=== PATIENT | male | born 1955 | race Caucasian/White ===

== ENCOUNTER → 2016-07-23 | Outpatient (CLI) | payer BC ==
[~2016-07-23] MED LIST: ASPIRIN PO; ASPIRIN81 M1 PO; CADUET 10 MG-41 EACH PO; CADUET PO; DOCUSATE SODIU100 MG PO; FISH OIL 1,001000 MG PO; FLEXERIL10 MG PO; HYDRALAZINE HCL50 MG PO; HYDROCODON-ACE1 EAC5 PO; JANUVIA50 MG PO; LASIX PO; LOPRESSOR PO; METFORMIN PO; METOPROLOL TAR25 MG PO; NIASPAN PO; NITROGLYCERIN0.3 MG SL; PLAVIX PO; PRINIVIL40 MG PO; TOPROL XL PO; TRILIPIX135 MG PO; ULTRAM PO
[2016-07-23 10:54] LABS: ALBUMIN SERUM 3.6 g/dL (3.5-5.0); BILIRUBIN,TOTAL 0.5 mg/dL (0.2-2.0); BUN/CREATININE RATIO 16.84; CALCIUM SERUM 9.2 mg/dL (8.4-10.2); CREATININE SERUM 1.9 mg/dL (0.6-1.4); PHOSPHOROUS 3.7 mg/dL (2.5-4.6); POTASSIUM 4.4 mmol/L (3.5-5.1); URIC ACID 6.1 mg/dL (2.6-7.2)
[2016-07-29 20:54] LABS: CALCIUM (PTHINTACT) 9.4 mg/dL (8.6-10.3)
== END | disposition home or self-care (01) ==
LOC: CLAB 08:57
PROVIDERS: Internal Medicine Nephrology
DX: N18.3 Chronic kidney disease, stage 3 (moderate) (principal); N25.81 Secondary hyperparathyroidism of renal origin
CPT/HCPCS: 36415; 80053; 82310; 83970; 84100; 84550

== ENCOUNTER → 2016-09-02 | Outpatient (CLI) | payer BC ==
[2016-09-02 10:54] LABS: BUN/CREATININE RATIO 16.66; CALCIUM SERUM 9.2 mg/dL (8.4-10.2); CREATININE SERUM 1.8 mg/dL (0.6-1.4); GLOM FILT RATE Estimated 39.5 mL/min (>60); POTASSIUM 4.7 mmol/L (3.5-5.1)
== END | disposition home or self-care (01) ==
LOC: CLAB 10:10
PROVIDERS: Internal Medicine Nephrology
DX: N18.3 Chronic kidney disease, stage 3 (moderate) (principal)
CPT/HCPCS: 36415; 80048